=== PATIENT | male | born 1985 | race Caucasian/White ===

== ENCOUNTER → 2016-06-28 | Outpatient (CLI) | payer OTHER ==
--- NOTE | 2016-06-28 11:22 | Diagnostic Imaging Report ---
Indication: COUGH Technique: 3 views of the lumbar spine Comparison: None Findings:No acute infiltrates, effusions, or congestion. Normal cardiomediastinal silhouette. Impression:Negative
== END | disposition home or self-care (01) ==
LOC: RAD 09:00
DX: R05 Cough (principal); R50.9 Fever, unspecified
CPT/HCPCS: 71020